=== PATIENT | male | born 1950 | race Two or more races ===

== ENCOUNTER → 2019-10-03 | Outpatient (CLI) | payer MEDICARE ==
--- NOTE | 2019-10-03 11:39 | XR ---
EXAMINATION TYPE: XR cervical spine comp DATE OF EXAM: 10/03/2019 COMPARISON: NONE HISTORY: Pain TECHNIQUE: 4 views are submitted. FINDINGS: The odontoid is intact. There are no compression deformities. The prevertebral soft tissue structur es are within normal limits. Multilevel severe degenerative disc disease with hypertrophic spurring and there is a 3 mm retrolisthesis of C3 relative to C4. Multilevel facet arthropathy. Lung apices de monstrate a 7 mm nodule on the right. Chest x-ray recommended.. IMPRESSION: 1. Severe multilevel facet arthropathy and degenerative disc disease with suspected foraminal encroac hment. Recommend MRI. 2. Chest x-ray recommended to assess the right upper lobe for small nodule.
--- NOTE | 2019-10-03 11:40 | XR ---
EXAMINATION TYPE: XR shoulder complete RT DATE OF EXAM: 10/03/2019 COMPARISON: NONE HISTORY: Pain TECHNIQUE: Three views are submitted. FINDINGS: The osseous structures are intact. There is no acute fracture or dislocation. Arthropathy of the AC joint. Vague area of calcification nodularity right upper lobe.. IMPRESSION: 1. AC joint arthropathy. Chest x-ray recommended to assess for possible right upper lobe pulmonary no dule
== END | disposition home or self-care (01) ==
LOC: RADXRMAIN 11:01
PROVIDERS: ATTEND Family Medicine
DX: M47.22 Other spondylosis with radiculopathy, cervical region (principal); M50.11 Cervical disc disorder with radiculopathy, high cervical region; M48.02 Spinal stenosis, cervical region; M12.811 Other specific arthropathies, not elsewhere classified, right shoulder
CPT/HCPCS: 72050

== ENCOUNTER → 2019-10-31 | Outpatient (CLI) | payer MEDICARE ==
--- NOTE | 2019-11-02 19:25 | MR ---
EXAMINATION TYPE: MR lumbar spine wo con DATE OF EXAM: 10/31/2019 COMPARISON: None HISTORY: 68-year-old male M54.5, Low back pain TECHNIQUE: Multiplanar, multisequence images of the lumbar spine were acquired. FINDINGS: Some straightening of the normal lumbar lordosis but with preserved alignment. Mild to moderate multilevel degenerative disc disease with desiccated and bulging discs. Small scleroscope tester ior annular fissures at L3-L4 and L4-L5. Mild heterogeneity of marrow signal without suspicious bone marrow placement. Conus medullaris is normal. Unable to exclude bilateral L5 pars defects. Hypertrophic facet arthropathy lower lumbar spine with small right greater than left L5-S1 joint effu sions. Vertebral body heights are preserved. At T12-L1, no canal or foraminal stenosis. At L1-L2 minimal posterior disc bulging without canal or foraminal stenosis. At L2-L3, mild diffuse disc bulge and facet degenerative change. No significant canal or foraminal st enosis. At L3-L4, mild diffuse disc bulge and facet degenerative change. Mild impression on the ventral theca l sac. No significant canal or foraminal stenosis. At L4-L5, no bulging disc with posterior annular fissure. Hypertrophic facet arthropathy. No signific ant spinal canal stenosis. Mild bilateral neuroforaminal stenosis. At L5-S1, mild bulging disc with hypertrophic facet arthropathy. There is moderate bilateral neurofor aminal stenosis. Disc material may abut the bilateral exiting L5 nerve roots. No prevertebral or paravertebral soft tissue abnormality seen. IMPRESSION: 1. Mild to moderate multilevel degenerative disc disease. Hypertrophic facet arthropathy lower lumbar spine. Small posterior annular fissures at L3-L4 and L4-L5. 2. Moderate bilateral neuroforaminal narrowing at L5-S1. Disc material at this level may abut the tamiko ateral exiting L5 nerve roots. 3. Suspect bilateral L5 pars defects. CT can provide more detailed assessment of the bony anatomy if indicated. No malalignment.
== END | disposition home or self-care (01) ==
LOC: RADMRIMAIN 15:03
PROVIDERS: ATTEND Orthopaedic Surgery
DX: M48.07 Spinal stenosis, lumbosacral region (principal); M51.36 Other intervertebral disc degeneration, lumbar region; M47.816 Spondylosis without myelopathy or radiculopathy, lumbar region; Q05.7 Lumbar spina bifida without hydrocephalus
CPT/HCPCS: 72148

== ENCOUNTER → 2019-12-25 | Outpatient (CLI) | payer MEDICARE ==
[2019-12-25 12:57] VITALS: BP 133/87; PULSE 77; RESP 18; TEMP 98.3
--- NOTE | 2019-12-25 13:16 | P.PAINCN ---
History of Present Illness - Reason for Consult Consult date: 12/25/19 - History of Present Illness This is a 69-year-old patient referred by Dr. Cardoso with a chief complaint of chronic pain in right knee. Patient has had pain in his right knee on and off for the last 30 years. Most recently in the last urinalyses noticed pain isolated in his right knee throughout the entirety of the joint that occurs usually once or twice a day described as a shocking phenomenon where he feels a pain in his knee which reverberates throughout his entire body. Patient refers to it as a "zap" cause away after a few seconds. When the episode is happening nothing makes the pain better but in general there is no aggravating factors. Otherwise patient does not have any pain complaints in the low back or other knee or leg. Patient notices that sometimes he feels unstable on his feet and were he to bend over to pick an object off the ground. Have a tough time standing up. Currently he is in 0 out of 10 pain. He is not taking any medications for pain Patient also denies new-onset weakness, bowel/bladder incontinence, or any other signs or symptoms of cauda equina syndrome. There are no signs of acute intoxication, and no indications of medication diversion or overuse. In addition to above, 13-point review of systems is also negative for chest pain, shortness of breath, changes in vision, changes in hearing, new onset weakness, abdominal pain, diarrhea, extreme fatigue, malaise, fever, skin changes, homicidal or suicidal ideation, or bowel or bladder incontinence. Physical exam: Vital Signs: Reviewed in EMR GENERAL: Well appearing, in no acute distress PSYCH: Mood and affect is appropriate. Awake, alert, and oriented SKIN: Skin color, texture, turgor normal, no rashes or lesions HEENT: Normocephalic, atraumatic. EOM intact CV: No pedal edema RESP: Respirations are unlabored, no audible wheezing GI: Abdomen non-distended MUSCULOSKELETAL: Bilateral upper and lower extremity strength is normal and symmetric. No atrophy or tone abnormalities are noted. Lumbar spine: Straight leg raising in the sitting position is negative for radicular pain. Patient can fully extend left leg and knee but is unable to fully extend right leg and knee, does not feel pain when he does this. No pain to palpation over the lumbar spine and paraspinous muscles. Negative for pain with facet loading and back extension/rotation. Limited range of motion without pain reproduction, has a hard time with lumbar flexion Buttocks: No pain to palpation over the PSIS, Joie test is negative Extremities: Peripheral joint ROM is full and pain free without obvious instability or laxity in all four extremities. No edema or skin discolorations noted. Gait: Gait is somewhat unstable NEUR: Bilateral upper and lower extremity coordination and muscle stretch reflexes are physiologic and symmetric. Negative clonus. No loss of sensation is noted. Cranial nerves are grossly intact. Imaging: Lumbar MRI 10/2019 - Mild to moderate multilevel degenerative disc disease. Hypertrophic facet arthropathy lower lumbar spine. Small posterior annular fissures at L3-L4 and L4-L5. - Moderate bilateral neural foraminal narrowing at L5-S1. Disc material at this level may abut the bilateral exiting L5 nerve root.. - Bilateral pars defect at L5 Cervical X-ray 10/2019 - Severe multilevel facet arthropathy and degenerative disc disease with suspected foraminal encroachment - 3 mm retrolisthesis of C3 relative to C4 Assessment: 1. Right knee pain possibly due to mild to moderate disc disease at L3-L4 and L4-L5 Plan: 1. Explanation: Diagnoses, prognoses, and multiple treatment options including but not limited to physical therapy, interventional therapies, medication management and surgery were discussed with the patient and all questions were answered to the patient's satisfaction. 2. Investigations: Consider right knee x-ray 3. Counseling: The patient was counseled for 3 minutes on,EXERCISE. Specifically, the patient was instructed regarding the importance of smoking cessation, weight control, and exercise in the context of both chronic pain and overall health. 4. Procedures: At this time patient is not interested in procedural intervention. Given that the pain is isolated to the right knee and only occurs for a few seconds out of the day I tend to agree with this. It would be unusual for a lumbar radicular pain to be only occurring in the knee by itself for only a few seconds a day. However, at this pain does continue to get worse, debilitating or significantly impact his functional status, we could consider pursuing Ruby lumbar epidural steroid injection. One other consideration is obtaining any x-ray in the future and possibly doing an injection. However at this time I do feel that exercise and physical therapy would be his best m odality of treatment given that he himself even explains that he does feel weaker and his core and thigh area. His instability and inability to rise from a lumbar flexed position indicates that he does have some weakness especially in the core area and can benefit from some targeted exercises which she will do on his own. 5. Consultations: Offered him for physical therapy will do this on his own at home 6. Medications: None 7. Disposition: as needed Past Medical History Additional Past Medical History / Comment(s): occasional back pain, right leg occasionally "gives out" History of Any Multi-Drug Resistant Organisms: None Reported Past Surgical History: No Surgical Hx Reported Past Anesthesia/Blood Transfusion Reactions: No Reported Reaction Smoking Status: Former smoker Medications and Allergies Home Medications Medication Instructions Recorded Confirmed Type No Known Home Medications 12/22/19 12/25/19 History Allergies Allergy/AdvReac Type Severity Reaction Status Date / Time No Known Allergies Allergy Verified 12/25/19 12:30 PQRS Measure Charge Sheet Measure #226: Tobacco Use: Screen & Cessation Intervention: Pt not a tobacco user Measure #111: Pneumonia Vaccination: Pneumococcal vaccine NOT administered or previously given Measure #47: Advance Care Plan: Advance care planning discussed & documented, pt chose/unable to give Measure #412: Opioid Treatment Agreement: No documentation of signed opioid treatment agreement Measure #408: Opioid Therapy Follow-up Evaluation: Patient had NO f/u eval minimum every 3 months during opioid therapy Measure #317: Preventitive Care & Scrn High Bld Press & F/U: Normal blood pressure, f/u not required Measure #128: Body Mass Index (BMI) Screening & Follow-up: BMI documented BELOW normal parameters - f/u documented Measure #131: Pain Assessment & Follow-up: Pain positive & plan documented, Pain negative & plan not documented, Follow-up PRN Measure #431: Unhealthy Alcohol Use Preventative Care & Scrn: Patient not identified as an unhealthy alcohol user PQRS Narrative: Pain Intensity [None] 0 Scale Used Numeric (1 - 10) Home Medications: Ambulatory Orders No Known Home Medications 12/22/19
== END | disposition home or self-care (01) ==
LOC: PNWHC3 12:24
PROVIDERS: ATTEND Anesthesiology
DX: M51.36 Other intervertebral disc degeneration, lumbar region (principal); Z87.891 Personal history of nicotine dependence
CPT/HCPCS: 99211

== ENCOUNTER → 2020-06-14 | Outpatient (CLI) | payer MEDICARE ==
--- NOTE | 2020-06-14 09:39 | US ---
EXAMINATION TYPE: US abdomen complete DATE OF EXAM: 06/14/2020 COMPARISON: NONE CLINICAL HISTORY: 69-year-old male R94.5 abnormal liver function. TECHNIQUE: Multiple sonographic images of the abdomen are obtained. FINDINGS: EXAM MEASUREMENTS: Liver Length: 15.6 cm Gallbladder: Surgically absent CBD: 1.0 cm Spleen: 12.6 cm Right Kidney: 11.3 x 4.6 x 5.0 cm Left Kidney: 11.4 x 5.3 x 5.0 cm Pancreas: Suboptimal visualization of the pancreatic tail due to shadowing from bowel gas. Liver: Somewhat coarsened echotexture. Mildly echogenic in relation to the adjacent right kidney. Le ft lobe partially obscured, cyst measuring 1.4 x 1.2 x 1.2cm Gallbladder: Surgically absent Evidence for sonographic Barron's sign: no CBD: Dilated. Spleen: wnl Right Kidney: Inferior pole obscured by bowel gas, no hydronephrosis seen Left Kidney: Inferior pole obscured by bowel gas, no hydronephrosis seen Upper IVC: wnl Abd Aorta: bifurcation obscured by overlying bowel gas. Fusiform ectasia/aneurysm of the proximal ab dominal aorta up to 3.0 cm. IMPRESSION: 1. Bile duct dilated at 1 cm, probably chronic due to postcholecystectomy status. Correlation can be made with alkaline phosphatase and bilirubin levels. 2. Mildly echogenic and coarsened hepatic echotexture suggests underlying hepatic steatosis or nonspe cific hepatocellular disease. 3. 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
== END | disposition home or self-care (01) ==
LOC: RADUSWWP 07:37
PROVIDERS: ATTEND Family Medicine
DX: I71.4 Abdominal aortic aneurysm, without rupture (principal); R93.2 Abnormal findings on diagnostic imaging of liver and biliary tract; Z90.49 Acquired absence of other specified parts of digestive tract
CPT/HCPCS: 76700

== ENCOUNTER → 2020-07-05 | Outpatient (CLI) | payer MEDICARE ==
--- NOTE | 2020-07-05 12:59 | MR ---
EXAMINATION TYPE: MR Cspine/Tspine wo con DATE OF EXAM: 07/05/2020 COMPARISON: NONE HISTORY: 69-year-old male M54.2, M54.6, Weakness in legs, pain in hands TECHNIQUE: Multiplanar, multisequence images of the cervical followed by the thoracic spine were obta ined without IV contrast. FINDINGS: CERVICAL SPINE: No craniocervical junction abnormality, predental space widening, or prevertebral soft tissue swellin g. Multilevel hypertrophic facet and uncovertebral joint arthropathy is present. Degenerative grade 1 retrolisthesis C3-C4. Remaining alignment is maintained. Moderate multilevel degenerative disc disease, greatest at C5-C6 where there is some associated Modic type III sclerotic endplate change. Scattered ligamentum flavum thickening in the mid cervical spine. Heterogeneous marrow signal suggesting red marrow hyperplasia. At C2-C3, hypertrophic facet and uncovertebral joint arthropathy. Moderate left neuroforaminal stenos is. No significant spinal canal stenosis. At C3-C4, hypertrophic facet and uncovertebral joint arthropathy. There is disc osteophyte complex an d ligamentum flavum thickening here as well as grade 1 retrolisthesis. Changes result in a mild overa ll spinal canal stenosis with abutment of both the dorsal and ventral cord. Severe right and moderate left neuroforaminal stenosis. At C4-C5, disc osteophyte complex with uncovertebral joint and facet arthropathy. Mild bilateral neur oforaminal stenosis. Mild overall narrowing of the spinal canal. At C5-C6, disc osteophyte complex, ligamentum flavum thickening, as well as uncovertebral joint and f acet arthropathy. There is abutment and flattening of the ventral cord with moderate narrowing of the spinal canal. Moderate to severe right greater than left neuroforaminal stenosis. At C6/C7, disc osteophyte complex with uncovertebral joint arthropathy. There is moderate bilateral n euroforaminal stenosis. No significant canal stenosis. At C7-T1, facet arthropathy without significant canal or foraminal stenosis. No prevertebral or paravertebral soft tissue abnormality seen. Normal course of the cervical spinal cord. Prominent patchy signal projects over the cervical cord re lating to motion artifact. This limits assessment for any true T2-weighted cord signal abnormality. THORACIC SPINE: Partially visualized cyst measuring at least 3.6 cm in the central left liver lobe. Ectasia of the lower descending thoracic aorta at 2.7 cm. Otherwise, no prevertebral or paravertebral soft tissue abnormal is seen. Vertebral body heights are preserved and alignment is maintained. Mild heterogeneous marrow signal without suspicious bone marrow placement. Tiny posterior disc bulge at T1-2. Otherwise, no large focal disc herniation or spinal canal stenosis . Normal course, caliber, and signal intensity of the thoracic spinal cord. Some ligamentum flavum thickening at the lower thoracic spine and some scattered facet arthropathy in both the upper and lower thoracic spine. On the right, there is mild neural foraminal narrowing at T2-T3, T8-T9, T9-T10. Moderate at T1-T2. On the left, mild neuroforaminal narrowing at T9-T10 and T10-T11. Incidental 1 cm possible perineural cyst on the left at T5-T6 demonstrating bright T2 and dark T1 sig nal. COMBINED IMPRESSION: CERVICAL SPINE: 1. Moderate multilevel degenerative disc disease, greatest at C5-C6 where some sclerotic Modic type I II endplate change is also present. 2. Multilevel facet and uncovertebral joint arthropathy as well as mild ligamentum flavum thickening. Degenerative grade 1 retrolisthesis at C3-C4. 3. Mild overall spinal canal stenosis at C3-C4 and C4-C5, more moderate at C5-C6 with abutment and sl ight flattening of the ventral cord but no dorian cord compression. 4. Motion artifact limits assessment for any myelopathic cord signal change. No definite cord signal abnormality seen. 5. Variable bilateral neural foraminal stenoses as outlined above, severe on the right at C3-C4, mode rate to severe on the right more so than the left at C5-C6. THORACIC SPINE: 1. Scattered mild facet arthropathy. Some mild ligamentum flavum thickening in the lower thoracic spi ne. 2. Tiny posterior disc bulge at T1-T2. No large focal disc herniation or spinal canal stenosis. 3. Mild neuroforaminal narrowing as outlined above, more moderate on the right at T1-T2. 4. A 1 cm lesion of the exiting left T5-T6 nerve root could represent a perineural cyst or nerve booth th tumor. Contrast enhanced MRI can be considered, focused through this level.
== END | disposition home or self-care (01) ==
LOC: RADMRIMAIN 09:09
PROVIDERS: ATTEND Orthopaedic Surgery
DX: M48.02 Spinal stenosis, cervical region (principal); M48.04 Spinal stenosis, thoracic region; M51.24 Other intervertebral disc displacement, thoracic region; M43.12 Spondylolisthesis, cervical region; M50.322 Other cervical disc degeneration at C5-C6 level; M47.812 Spondylosis without myelopathy or radiculopathy, cervical region; M47.814 Spondylosis without myelopathy or radiculopathy, thoracic region; M46.02 Spinal enthesopathy, cervical region; M46.04 Spinal enthesopathy, thoracic region; M48.8X4 Other specified spondylopathies, thoracic region
CPT/HCPCS: 72141; 72146

== ENCOUNTER → 2020-07-31 | Outpatient (CLI) | payer MEDICARE ==
--- NOTE | 2020-07-31 15:59 | MR ---
EXAMINATION TYPE: MR tspine/lspine wo/w con DATE OF EXAM: 07/31/2020 COMPARISON: Thoracic spine exam 07/05/2020 HISTORY: perineural lesion thoracic spine/weakness/pain CONTRAST: Standard multiplanar, multisequence MRI departmental protocol utilizing 10 mL intravenous Gadavist ga dolinium contrast. The thoracic vertebra have normal alignment. There is mild multilevel thoracic disc space narrowing. There is developmentally adequate spinal canal. There is posterior small disc herniation at C5-6 with some narrowing of the spinal canal. Canal measures 7 mm. Thoracic spinal cord has normal signal rubin james. There is no edema. There is no thoracic compression fracture. At T4-5 there is large left side n erve root sheath consistent with a minimal meningocele. There is no pathologic enhancement. This appe ars unchanged compared to old exam. Lumbar vertebra have normal alignment. There is mild degenerative disc space narrowing in the lumbar spine. There is no compression fracture. There is developmentally adequate spinal canal. There is no spinal stenosis. The posterior elements are intact. The sacroiliac joints appear intact. I see no bon y destructive process. Contrast images show no pathologic enhancement of the thoracic and lumbar spine. There is no signific ant neural foraminal impingement. IMPRESSION: Mild multilevel thoracic and lumbar spondylotic changes. No spinal stenosis. Mild posterior C5-6 cerv ical disc herniation with 7 mm mild spinal stenosis. Nerve root sheath ectasia at T4-5 on the left side consistent with a minimal lateral meningocele unch anged.
== END ==
LOC: RADMRIMAIN 11:39
PROVIDERS: ATTEND Orthopaedic Surgery
DX: M47.814 Spondylosis without myelopathy or radiculopathy, thoracic region (principal); M47.816 Spondylosis without myelopathy or radiculopathy, lumbar region; G96.198 Other disorders of meninges, not elsewhere classified; M48.02 Spinal stenosis, cervical region; M50.222 Other cervical disc displacement at C5-C6 level
CPT/HCPCS: 72157; 72158; A9585

== ENCOUNTER → 2020-11-15 | Outpatient (CLI) | payer MEDICARE ==
--- NOTE | 2020-11-15 16:39 | US ---
EXAMINATION TYPE: US duplex aorta DATE OF EXAM: 11/15/2020 COMPARISON: NONE CLINICAL HISTORY: AAA I71.3. EXAM MEASUREMENTS: Abdominal Aorta: Proximal: 2.4 x 2.8cm Mid: 2.1 x 1.8cm Distal: 2.0 x 1.7cm Bifurcation: RT: 1.2 x 1.1cm LT:1.1 x 1.1cm no evidence of AAA at this time. Ectatic proximal aorta IMPRESSION: 1. No evidence of abdominal aortic aneurysm. There is ectasia of the proximal abdominal aorta.
== END | disposition home or self-care (01) ==
LOC: RADUSWWP 07:57
PROVIDERS: ATTEND Family Medicine
DX: I77.811 Abdominal aortic ectasia (principal)
CPT/HCPCS: 93979

== ENCOUNTER → 2021-12-23 | Outpatient (CLI) | payer MEDICARE ==
[2021-12-23 10:19] LABS: African American GFR (CKD) >90 (>60 ml/min/1.73 sqM); Blood Urea Nitrogen 12 mg/dL (9-20); Non-African American GFR(CKD) >90 (>60 ml/min/1.73 sqM)
--- NOTE | 2021-12-23 11:27 | CT ---
EXAMINATION TYPE: CT soft tissue neck w con CT DLP: 589.9 mGycm, Automated exposure control for dose reduction was used. DATE OF EXAM: 12/23/2021 11:13 AM COMPARISON: MRI C-spine 2 11/02/2020. CLINICAL INDICATION:Male, 71 years old with history of R13.10 dysphagia;, Dysphagia TECHNIQUE: Standard enhanced CT of the neck. Axial sections with coronal and sagittal reformats were obtained. Contrast used:70 mL of Isovue 300 with IV Contrast, Oral contrast used: None FINDINGS: Brain: Visualized portions are grossly unremarkable. Orbits: Unremarkable Sinuses: Grossly unremarkable. Spaces of the neck: Clear and symmetric. Musculoskeletal: No acute osseous pathology. Degenerative disc disease changes of the visualized spin e are present. Lymph nodes: Multiple nonenlarged lymph nodes are seen along both anterior chains of the neck. Vascular structures: Patent with atherosclerotic plaque of the internal carotid arteries at the bifur cation. Thoracic Inlet/airway: Airway is patent. The lung apices are clear. Soft tissues/Thyroid: Thyroid and remainder of the soft tissues are unremarkable. Other: none. IMPRESSION 1. No definite evidence for significant abnormality to explain patient's symptomology..
--- NOTE | 2021-12-23 12:04 | FL ---
EXAMINATION TYPE: FL barium swallow DATE OF EXAM: 12/23/2021 CLINICAL HISTORY: Dysphagia per order. Patient describes more sand paper light pain that comes and go es over the left neck. Patient has history of neuromuscular disorder diagnosed in the last 1-2 years. Some throat irritation over last 3-4 weeks. History of cholecystectomy. TECHNIQUE: A double contrast esophagram is performed utilizing air and barium. A total of 44 second s of fluoroscopic time was utilized during procedure and 96 images obtained COMPARISON: CT neck from same day. FINDINGS: The esophagus shows normal motility and emptying into the stomach. No proximal diverticulum . No evidence of fixed hiatal hernia or stricture noted. No significant gastroesophageal reflux was s een during real time performance of this study. Some excretion in the collecting system of the right kidney from recent contrast-enhanced neck CT incidentally noted. IMPRESSION: No significant abnormality is seen to account for patient's symptoms.
== END | disposition home or self-care (01) ==
LOC: RADCTMAIN 09:25
PROVIDERS: ATTEND Otolaryngology
DX: R13.10 Dysphagia, unspecified (principal)
CPT/HCPCS: 82565; 84520; 74220; 70491; 36415; Q9967

== ENCOUNTER 2023-08-30 08:29 | Emergency (ER) | payer MEDICARE ==
--- NOTE | 2023-08-30 08:42 | ED ---
Fall HPI - General Chief Complaint: Fall Stated Complaint: Fall Time Seen by Provider: 08/30/23 08:30 Source: patient, RN notes reviewed Mode of arrival: EMS Limitations: no limitations - History of Present Illness Initial Comments: This is a 72-year-old male who presents to the emergency department for a fall. Patient has IBM (inclusion body myositis), a degenerative muscle condition, and states that he struggles to get around and does fall on occasions. States that he was coming around a chair, when he got his foot and cane stuck on the corner, causing him to fall. He fell into the couch, and landed with pain over the right rib cage and middle of his back. States that he also injured his right knee. Denies hitting his head or any loss of consciousness. Not taking any blood thinners. He was concerned that the right knee was still swollen this morning and causes discomfort when trying to ambulate. MD Complaint: fall - Related Data Previous Rx's Medication Instructions Recorded Celecoxib 200 mg PO BID PRN #30 cap 08/30/23 Lidocaine 5% Patch [Lidoderm 5% 1 patch TOPICAL DAILY PRN #30 patch 08/30/23 Patch] methocarbamoL [Robaxin-750] 1,500 mg PO TID PRN #30 tab 08/30/23 Allergies Allergy/AdvReac Type Severity Reaction Status Date / Time No Known Allergies Allergy Verified 08/30/23 09:53 Review of Systems ROS Statement: Those systems with pertinent positive or pertinent negative responses have been documented in the HPI. ROS Other: All systems not noted in ROS Statement are negative. Past Medical History Additional Past Medical History / Comment(s): occasional back pain, right leg occasionally "gives out" History of Any Multi-Drug Resistant Organisms: None Reported Past Surgical History: No Surgical Hx Reported Past Anesthesia/Blood Transfusion Reactions: No Reported Reaction Smoking Status: Former smoker General Exam Limitations: no limitations General appearance: alert, in no apparent distress Head exam: Present: atraumatic, normocephalic, normal inspection Respiratory exam: Present: normal lung sounds bilaterally, chest wall tenderness (Right rib cage). Absent: respiratory distress, wheezes, rales, rhonchi, stridor Cardiovascular Exam: Present: regular rate, normal rhythm, normal heart sounds. Absent: systolic murmur, diastolic murmur, rubs, gallop, clicks GI/Abdominal exam: Present: soft, normal bowel sounds. Absent: distended, tenderness, guarding, rebound, rigid Extremities exam: Present: other (Swelling over the right knee. Minor tenderness. No ecchymosis. Full active and passive range of motion. Negative anterior posterior drawer test. Negative Curtis's. 2+ DP and PT pulses.) Back exam: Present: tenderness (Mid thoracic spine, no ecchymosis) Neurological exam: Present: alert, oriented X3, CN II-XII intact Psychiatric exam: Present: normal affect, normal mood Skin exam: Present: warm, dry, intact, normal color. Absent: rash Course Vital Signs 08/30/23 08/30/23 08:31 11:40 Temperature 98.4 F Pulse Rate 87 71 Respiratory 18 18 Rate Blood Pressure 178/104 169/87 O2 Sat by Pulse 96 96 Oximetry Medical Decision Making - Medical Decision Making This is a 72 year old male who presents to the emergency department for right knee pain, shoulder pain, and rib cage pain after a fall. Was pt. sent in by a medical professional or institution? @ -No Did you speak to anyone other than the patient for history? @ -No Did you review nursing and triage notes? @ -Yes, and I agree, it is accurate with regards to the patient's symptoms. Were old charts reviewed? @ -No Differential Diagnosis? @ -Differential Musculoskeletal: Muscular strain, contusion, ligament sprain, fracture, arthritis, septic arthritis, bursitis, cellulitis, muscle spasm, nerve compression, DVT, arterial occlusion, herpes zoster, electrolyte abnormality, tumor.... This is not meant to be in all inclusive list EKG interpreted by me (3pts min.)? @ -Not obtained X-rays interpreted by me (1pt min.)? @ -X-ray of the right rib cage and PA chest obtained. My interpretation identifies 2 rib fractures. X-ray of the thoracic spine and right shoulder obtained. My interpretation identifies no acute fractures. X-ray of the right knee obtained as well revealing swelling without any acute fractures. CT interpreted by me (1pt min.)? @ -Not obtained U/S interpreted by me (1pt. min.)? @ -Not obtained What testing was considered but not performed? (CT, X-rays, U/S, labs)? Why? @ -None What meds were considered but not given? Why? @ -None Did you discuss the management of the patient with other professionals? @ -Yes, Dr. Benitez, who advised that the patient can follow up outpatient. Did you reconcile home meds? @ -No Was smoking cessation discussed for >3mins.? @ -No Was critical care preformed (if so, how long)? @ -No Were there social determinants of health that impacted care today? How? (Homelessness, low income, unemployed, alcoholism, drug addiction, transportation, low edu. Level, literacy, decrease access to med. care, group home, rehab)? @ -No Was there de-escalation of care discussed even if they declined? (Discuss DNR or withdrawal of care, Hospice)? @ -No What co-morbidities impacted this encounter? (DM, HTN, Smoking, COPD, CAD, Cancer, CVA, Hep., AIDS, mental health diagnosis, sleep apnea, morbid obesity)? @ -Inclusion body myositis Was patient admitted / discharged? @ -Discharged. X-ray of the right rib cage obtained demonstrating fractures of ribs 3 and 4. X-ray of the right knee demonstrates suprapatellar hemarthrosis and a well-corticated ossific density adjacent to the medial intercondylar spine which could reflect avulsion injury from ACL tear. X-ray of the thoracic spine and right shoulder revealed no acute process. His pain was well-controlled in the emergency department. Case discussed with his primary care provider given the patient's history of inclusion body myositis and how these injuries might affect him. Given that his pain was controllable, he advised that he can follow-up in the office. Prescription for Celebrex, lidocaine patches, and Robaxin provided with dosing instructions reviewed. Knee immobilizer was applied the patient was given an incentive spirometer for the rib fractures. Case management made the patient an appointment with orthopedics for tomorrow regarding the knee in the event aspiration can be performed. Patient otherwise discharged home in stable condition. Undiagnosed new problem with uncertain prognosis? @ -None Drug Therapy requiring intensive monitoring for toxicity (Heparin, Nitro, Insulin, Cardizem)? @ -None Were any procedures done? @ -None Diagnosis/symptom? @ -Fall, right rib fractures, hemarthrosis Acute, or Chronic, or Acute on Chronic? @ -Acute Uncomplicated (without systemic symptoms) or Complicated (systemic symptoms)? @ -Uncomplicated Side effects of treatment? @ -None Exacerbation, Progression, or Severe Exacerbation] @ -Not applicable Poses a threat to life or bodily function? @ -This may have an impact on his ability to ambulate for the meantime. This case was discussed in detail with the attending ED physician, Dr. Khan. Presentation, findings, and treatment plan discussed in detail as well. - Radiology Data Radiology results: report reviewed, image reviewed Disposition Clinical Impression: Fall, Right rib fracture, Hemarthrosis, right knee Disposition: HOME SELF-CARE Instructions (If sedation given, give patient instructions): Rib Fracture (ED), Hemarthrosis (ED) Additional Instructions: Return to the emergency department with any new, worsening, or concerning symptoms. Take the Celebrex twice daily as needed for pain relief. Take this with Tylenol, however do not take any other anti-inflammatories such as ibuprofen, take one or the other. You can take the Robaxin as 1 to 2 tablets up to 3-4 times daily. Be aware that this may make you drowsy. You can also apply the lidocaine patches daily. Make sure you take several deep breaths an hour despite the pain to reduce the risk of developing a secondary pneumonia. Follow-up with orthopedics tomorrow as scheduled at 10:15 AM. Prescriptions: Celecoxib 200 mg PO BID PRN #30 cap PRN Reason: Pain Lidocaine 5% Patch [Lidoderm 5% Patch] 1 patch TOPICAL DAILY PRN #30 patch PRN Reason: Pain methocarbamoL [Robaxin-750] 1,500 mg PO TID PRN #30 tab PRN Reason: Pain Is patient prescribed a controlled substance at d/c from ED?: No Referrals: Darrell Benitez DO [Primary Care Provider] - 1-2 days Melvin Noble MD [STAFF PHYSICIAN] - 08/31/23 10:15 am (Bring ID and Insurance cards. You will have paperwork to complete.) Time of Disposition: 11:23
[2023-08-30 08:47] VITALS: RESP 18; TEMP 98.4
--- NOTE | 2023-08-30 08:59 | XR ---
EXAMINATION TYPE: XR knee complete RT DATE OF EXAM: 08/30/2023 CLINICAL HISTORY: pain TECHNIQUE: Three views of the right knee are obtained. COMPARISON: None. FINDINGS: Suprapatellar hemarthrosis suggested. While I do not see evidence for a displaced fracture. There Is well-corticated ossific density adjacent to the medial intercondylar spine which could refl ect avulsion injury from ACL tear. Correlate clinically and consider MRI correlation. IMPRESSION: As above
--- NOTE | 2023-08-30 09:09 | XR ---
EXAMINATION TYPE: XR shoulder complete RT DATE OF EXAM: 08/30/2023 CLINICAL HISTORY: pain TECHNIQUE: Three views of the right shoulder are obtained. COMPARISON: None FINDINGS: There is no acute fracture/dislocation evident. The acromioclavicular and glenohumeral martha int spaces appear moderately narrowed. The visualized ribs are intact and unremarkable. IMPRESSION: 1. There is no acute fracture or dislocation. ICD 10 NO FRACTURE, INITIAL EVALUATION
--- NOTE | 2023-08-30 09:19 | XR ---
EXAMINATION TYPE: XR thoracic spine 2V DATE OF EXAM: 08/30/2023 CLINICAL HISTORY: pain TECHNIQUE: Frontal, lateral, and swimmer's view of thoracic spine are obtained. COMPARISON: None. FINDINGS: Thoracic spine show satisfactory alignment without evidence of acute fracture or dislocatio n. Vertebral body heights are preserved. Moderate multilevel degenerative disc disease and spondylos is. Visualized ribs are unremarkable. IMPRESSION: No acute fracture or dislocation is seen in the thoracic spine. ICD 10 NO FRACTURE, INITIAL EVALUATION
--- NOTE | 2023-08-30 09:22 | XR ---
EXAMINATION TYPE: XR ribs RT w pa chest xray DATE OF EXAM: 08/30/2023 COMPARISON: NONE HISTORY: Pain TECHNIQUE: Single view of the chest 4 views of the ribs are submitted. FINDINGS: Noted are fractures of right ribs 3 and 4 laterally. No obvious pneumothorax present. Scatt ered granulomas right lung. Evidence of pulmonary contusion or pleural effusion. IMPRESSION: Noted are fractures of right ribs 3 and 4 laterally. No obvious pneumothorax present.
[2023-08-30] MEDS: ACET/COD 300 MG/30 MG STARTER PACK 6 TAB BTL PO STA (10:17)
[2023-08-30] MEDS: Acetaminophen-Codeine 300-30mg TAB PO STA (10:18)
[2023-08-30] MEDS: KETOROLAC 15 MG/ML 1 ML VIAL IM STA (10:18)
[2023-08-30] MEDS: LIDOCAINE 4% PATCH TOPICAL ONE (10:56)
[2023-08-30 12:16] VITALS: BP 169/87; PULSE 71
== END 2023-08-30 12:00 | disposition home or self-care (01) ==
LOC: EC 08:29
DX: S22.41XA Multiple fractures of ribs, right side, initial encounter for closed fracture (principal); S83.91XA Sprain of unspecified site of right knee, initial encounter; G72.41 Inclusion body myositis [IBM]; Z87.891 Personal history of nicotine dependence; W18.30XA Fall on same level, unspecified, initial encounter; W22.03XA Walked into furniture, initial encounter; Y92.009 Unspecified place in unspecified non-institutional (private) residence as the place of occurrence of the external cause
CPT/HCPCS: 71101; 72070; 73030; 73562; 99284; 96372; L1830; J1885